=== PATIENT | female | born 1950 | race Two or more races ===

== ENCOUNTER 2025-02-02 19:56 | Emergency (ER) | payer OTHER ==
[~2025-02-02] VITALS: Ht 160 cm; Wt 79.4 kg
[2025-02-02] MEDS ORDERED: CILOSTAZOL100 MG PO (20:17)
[2025-02-02] MEDS ORDERED: GABAPENTIN800 M1 PO (20:17)
[2025-02-02] MEDS ORDERED: CARVEDILOL6.25 M1 PO (20:18)
[2025-02-02] MEDS ORDERED: XIFAXAN550 MG (20:18)
[2025-02-02] MEDS ORDERED: ECOTRIN81 MG (20:18)
[2025-02-02] MEDS ORDERED: DICYCLOMIN10 MG/5 M1 (20:19)
[2025-02-02] MEDS ORDERED: PEPCID AC20 MG (20:19)
[2025-02-02] MEDS ORDERED: INDAPAMIDE2.5 MG PO (20:19)
[2025-02-02] MEDS ORDERED: VITAL-D RX TAB1 EACH (20:19)
[2025-02-02] MEDS ORDERED: LACTULOSE10 GM/151 (20:20)
[2025-02-02 20:21] VITALS: BP 133/73; O2SAT 99
[2025-02-02] MEDS ORDERED: ORPHENADRINE CITRATE 30 MG/ML AMPUL ONE (20:42)
[2025-02-02] MEDS ORDERED: ORPHENADRINE CITRATE 30 MG/ML AMPUL IM ONE (20:45)
[2025-02-02] MEDS ORDERED: NORFLEX100MG PO (21:50)
[2025-02-02] MEDS ORDERED: PERCOCET 5-3251 EACH PO (22:06)
[2025-02-02] MEDS ORDERED: ONDANSETRON 4 MG TAB.RAPDIS PO ONE ×2 (22:11→22:15)
[2025-02-02] MEDS ORDERED: OxyCODONE HCL 5 MG TABLET (ROXICODONE) PO ONE (22:15)
== END 2025-02-02 22:46 | disposition home or self-care (01) ==
LOC: ER 19:56
DX: S82.091A Other fracture of right patella, initial encounter for closed fracture (principal); X58.XXXA Exposure to other specified factors, initial encounter; Y93.89 Activity, other specified; Y92.89 Other specified places as the place of occurrence of the external cause; Y99.9 Unspecified external cause status; E11.9 Type 2 diabetes mellitus without complications; Z79.84 Long term (current) use of oral hypoglycemic drugs
CPT/HCPCS: 73564; 96372; 99283; J2360